=== PATIENT | male | born 1940 | race Caucasian/White ===

== ENCOUNTER 2017-03-14 16:39 | Observation (INO) | payer MEDICARE ==
[~2017-03-14] VITALS: Ht 185.4 cm; Wt 160.0 kg
[~2017-03-14 16:39] MED LIST: ALFUZOSIN HCL E10 MG PO; AUGMENTIN875 MG PO; B-12500 MC1 PO; COUMADIN5 MG PO; COUMADIN7.5 MG PO; CYMBALTA30 MG PO; CYMBALTA60 MG PO; DITROPAN-DPS5 MG PO; DUONEB DPS3 ML IH; GLUCOPHAGE DPS850 MG PO; GLUCOTROL DPS10 MG PO; GLUTOSE 1537.5 GM PO; HYDRODIURIL-DPS25 MG PO; LASIX DPS40 MG PO; LEXAPRO DPS10 MG PO; LEXAPRO5 MG PO; LIORESAL DPS10 MG PO; LIORESAL DPS20 MG PO; LOPRESSOR DPS50 MG PO; LOPRESSOR50 MG PO; MEVACOR20 MG PO; MEVACOR40 MG PO; MILK OF MAGNESI10 ML PO; MIRALAX DPS17 GM PO; MIRALAX PACKET17 GM PO; MUCINEX600 MG PO; NEURONTIN DPS300 MG PO; NEURONTIN DPS600 MG PO; NORCO 5-325 TA1 EACH PO; NORCO 7.5-3251 EACH PO; NOVOLOG100 UNIT/2 SQ; OMEGA-3 DPS1000 MG PO; OSTEO BI-FLEX1 EAC1 PO; SENOKOT S1 TAB PO; THERA-M1 EACH PO; TRIXAICIN60 GM TP; TRUSOPT 2% DPS10 ML OU; TYLENOL DPS325 MG PO; UROXATRAL10 MG PO; VASOTEC DPS20 MG PO; VITAMIN D1000 UNIT PO; VITAMIN D31000 UNIT PO; XALATAN2.5 ML OU; ZOSTRIX TP
--- NOTE | 2017-03-17 10:57 | HP ---
ADMIT: 03/14/2017 RM/LOC: 520 [facility] MR#: [id number] 2620 [facility] [address] [place] [id number] GATUAM DAVE [address] [place] [id number] History and Physical SEX: M AGE: 77 : 1940 DATE OF SERVICE: CHIEF COMPLAINT: Weakness, fatigue, left shoulder pain, recent falls. HISTORY OF PRESENT ILLNESS: The patient states he fell 2-3 days ago, fell backwards out of the bed trying to brace himself with his left arm. Ever since then, he has been having left shoulder pain. He also just feels that he has not been feeling well lately, cannot really tell me specifics, just does not feel himself, and then with his injury, he has been able to hardly get up. The patient's family is very concerned about his weakness and lethargy. They state he often gets UTIs and he often starts having these symptoms. The patient denies any upper respiratory symptoms like runny nose, sinus congestion. He denies any cough and wheezing. He does not have any chest pain or palpitations. He does have some shortness of breath with exertion, but says that this is normal for him. He states this is due to his excessive weight. Again, he states he had no recent illnesses. No nausea, vomiting, diarrhea, constipation. He denies any increased urinary frequency or pain but does have chronic urinary incontinence and states he has had a history of UTIs. Denies any rashes, skin breakdown, cuts or ulcers. The patient just states his main concern is his shoulder pain, his chronic low back pain, and then just his overall fatigue. PAST MEDICAL HISTORY: Significant for atrial fibrillation, hypertension, diabetes, hyperlipidemia, chronic back pain. PAST SURGICAL HISTORY: Surgeries include surgery on his back. ALLERGIES: HIGH-DOSE STATINS. FAMILY HISTORY: Noncontributory. MEDICATIONS: See list. REVIEW OF SYSTEMS: CONSTITUTIONAL: Generalized weakness, fatigue. No headaches. HEENT: No rhinorrhea or congestion or sinus pain or sore throat. HEART: No chest pain. No palpitations. LUNGS: Some shortness of breath with exertion. No cough. No wheezing. ABDOMEN: No nausea, vomiting, diarrhea, or constipation. GENITOURINARY: He is positive for urinary incontinence but no odor or hematuria or dysuria. EXTREMITIES: Mild edema in his lower ankles, left shoulder pain. NEURO: No stroke or seizure-like activity. PHYSICAL EXAMINATION: VITAL SIGNS: Most recent vital signs show a heart rate of 85, respirations 19, blood pressure is 147/71. He has a 15 [place] Coma Scale. He is saturating 98% SpO2 on 3 L nasal cannula. He did have a temperature of 100.5 when he came into the ER. Otherwise, vital signs have been fairly stable. ADMIT: 03/14/2017 RM/LOC: 520 [facility] MR#: [id number] [address] [place] [id number] GAUTAM DAVE [address] [place] [address] History and Physical SEX: M AGE: 77 : 1940 GENERAL: Mild increase in respiratory rate. No acute distress. Alert and oriented x3. He is pleasant. HEENT: Normocephalic and atraumatic. Extraocular muscles are intact. Pupils equal, round, and reactive. No nasal congestion. NECK: Supple. HEART: Regular rate but irregularly irregular rhythm. There is a 2/6 systolic murmur. ABDOMEN: Obese, soft. Positive bowel sounds. LUNGS: Clear to auscultation bilaterally. No wheezing. No congestion. No consolidations. EXTREMITIES: 1+ edema in his ankles bilaterally. NEURO: Cranial nerves II through XII are grossly intact. LABORATORY AND X-RAY DATA: Workup in the ER was fairly non-significant. Chest x-ray was normal, showed some stable cardiomegaly without pulmonary edema. UA was normal. Shoulder and clavicle x-rays were normal. They did not show any signs of fractures. Procalcitonin was less than 0.05. Lactic acid was normal at 1.3. INR was 2.37. He is on anticoagulation. White blood cell count was 10, hemoglobin slightly low at 13, platelets are 179. Electrolytes; sodium 136, potassium 4.1, chloride of 98, CO2 of 32, BUN of 14, creatinine of 0.9, and his glucose is 191. He also had a low magnesium of 1.7. Cardiac enzymes are all normal. EKG showed sinus rhythm at this time. No signs of acute MT. ASSESSMENT AND PLAN: 1. Weakness and fatigue. 2. Increased shortness of breath. 3. Hypertension. 4. Diabetes. 5. Hyperlipidemia. 6. Chronic pain. At this time, due to patient's increased shortness of breath as well as his fatigue, we will go ahead and start the patient on IV Levaquin both for possible coverage of a UTI due to patient's extensive history of UTIs but also for possible URI due to his increased respiratory rate. We will check cardiac enzymes and we will trend labs as well, check a thyroid. We will replace his magnesium. Otherwise, we will continue his home medications. Phyllis Steward MD Resident / Adelaida Lopez MD / pedro JOB #: [id number] CC: Adelaida Lopez MD, Attending Physician [facility] Physician, Family Physician
--- NOTE | 2017-03-19 10:38 | ER ---
ADMIT: 03/14/2017 RM/LOC: 520 [facility] MR#: [id number] [address] [facility] [address] [place], [place] [phone] JODIEELOISE GAUTAM Ureña [address] [place] [address] Emergency Room Report SEX: M AGE: 77 : 1940 DATE: 03/14/2017 ADDENDUM: CHIEF COMPLAINT: Fall, left shoulder pain. Please see my T-sheet for complete review of systems, past medical history, and physical exam. HISTORY OF PRESENT ILLNESS: This is a 77-year-old, white male, who comes from home. Family reports that he has been increasingly confused and depressed over the recent of his brother last week. Reports he has had increased lethargy and concerns for UTI as he has had these in the past with similar symptoms. Family tells me that they have increasing care needs at home and they feel that they are unable to give him proper care. At this point, the complains of left shoulder pain after the fall. He states he has a loss of feeling in power and the affected arm pain with movement and has some chronic back pain. PAST MEDICAL HISTORY: Atrial fibrillation, type 2 diabetes, hypertension, hyperlipidemia. He is on Coumadin for his atrial fibrillation. COURSE IN THE EMERGENCY ROOM: The patient was seen and examined. Did get views of his shoulder as well as collarbone. It is negative for any fracture. Reassessment in the ER did reveal he had a fever. Sepsis labs were drawn. Procalcitonin less than 0.015. Urine; no signs of any infection. PT 25.3, INR 2.37, lactic acid 1.3. White count 10, hemoglobin 13.0, hematocrit 39.1, platelets 179. Sodium 136, potassium 4.1, CO2 of 32, glucose 191, creatinine 0.9. Cardiac enzymes were negative. The patient was given Zofran and morphine, and while in the department tonight, I did discuss this patient with Dr. Lopez, who thought him suitable for admission for placement possibly tomorrow. ADMIT: 03/14/2017 RM/LOC: 520 [facility] MR#: [id number] [address] [phone] GAUTAM DAVE Adelita [address] [place] [address] Emergency Room Report SEX: M AGE: 77 : 1940 IMPRESSION: 1. Left shoulder pain. 2. Increased weakness. 3. Increased falls. DISPOSITION: The patient will be admitted to the care of Dr. Lopez, [place]. Family felt uncomfortable taking this patient home tonight. We will admit him for further evaluation and management for possible placement tomorrow. Questions sought and answered to the best of my ability and to the patient's and family's satisfaction. Discharged to the floor in stable condition. SALOMÓN Hobson / Lewis Stanley MD / pedro JOB #: [id number] CC: Adelaida Lopez MD, Attending Physician [facility] Physician, Family Physician
--- NOTE | 2017-04-30 07:27 | DS ---
ADMIT: 03/14/2017 RM/LOC: 520 [facility] MR#: [id number] 2620 [facility] [address] [place] [phone] GAUTAM DAVE Adelita [place], [place] [address] General Discharge Summary SEX: M AGE: 77 : 1940 ADMISSION DATE: 03/14/2017 DISCHARGE DATE: 03/17/2017 FINAL DIAGNOSES: 1. Contusion to the left shoulder. 2. Cervical degenerative disk disease. 3. Weakness. 4. Type 2 diabetes, without complications. 5. Hypertensive heart disease with heart failure. 6. Chronic congestive heart failure. 7. Hyperlipidemia. 8. Atrial fibrillation. 9. Low back pain. 10.Chronic pain. 11.Fall. REASON FOR ADMISSION: The patient is a 77-year-old, who fell 2-3 days prior to admission backwards out of bed and ended up hurting his left arm. He had been having ongoing left shoulder pain and really pretty unsteady on his feet and family was concerned about high risk of repeat falls. He has also been more lethargic. Has had a lot of UTIs and they thought maybe he was developing an infection. No other acute changes. HOSPITAL COURSE: Workup in the emergency room really was fairly nonsignificant. His INR there was therapeutic. He had no signs of sepsis on labs. White blood cell count was 10 and hemoglobin was slightly low at 13. He was started on IV Levaquin with his history of possible UTI until cultures were available and then PT and OT were ordered. Cardiac enzymes were trended and remained normal. He was kept on sliding scale insulin. Social Work was consulted to look at placement options. Did receive some IV Lasix as he had some fluid overload during his stay. Did not develop any other issues during his stay and so was transferred to [facility] for ongoing [facility] care on 03/17/2017. DISCHARGE INSTRUCTIONS: MEDICATIONS: Include: 1. Coumadin 7.5 mg daily. 2. Cymbalta 120 mg daily. 3. Ditropan 5 mg t.i.d. 4. Glucophage 850 mg t.i.d. with meals. 5. Glucotrol 10 mg b.i.d. 6. Hydrochlorothiazide 25 mg daily. 7. Lasix 20 mg daily. 8. Levaquin 500 mg daily for 7 more days. 9. Lexapro 10 mg daily. 10.Lioresal 20 mg t.i.d. 11.Lopressor 75 mg b.i.d. 12.Mevacor 20 mg at bedtime. ADMIT: 03/14/2017 RM/LOC: 520 [facility] MR#: [id number] [facility] [address] [phone] [place] [address] General Discharge Summary SEX: M AGE: 77 : 1940 13.MiraLax 17 g daily. 14.Neurontin 1200 mg t.i.d. 15.[place]-3 fish oil 2000 mg daily. 16.Senokot-S 2 tabs t.i.d. 17.Therapeutic multivitamin 1 tab daily. 18.Uroxatral 10 mg daily. 19.Vasotec 20 mg b.i.d. 20.Vitamin B12 of 1000 mcg daily. 21.Vitamin D 1000 units daily. 22.Trusopt 1 drop t.i.d. 23.Xalatan 1 drop at bedtime. 24.NovoLog sliding scale. 25.Colace 100 mg b.i.d. p.r.n. 26.Hydrocodone with acetaminophen 7.5/325 mg 1 every 6 hours as needed. We will follow with Dr. Cordero at [facility] and he will be seen in clinic in 1-2 weeks after discharge. We will continue with CPAP at night as well. Adelaida Lopez MD/ pedro JOB #: [id number] CC: Adelaida Lopez MD, Attending Physician [facility] Physician, Family Physician
== END 2017-03-17 10:30 ==
LOC: ER 16:39 → 5MS 20:00
PROVIDERS: ADMIT Family Medicine
DX: S40.012A Contusion of left shoulder, initial encounter (principal); M50.323 Other cervical disc degeneration at C6-C7 level; R53.1 Weakness; E11.9 Type 2 diabetes mellitus without complications; I11.0 Hypertensive heart disease with heart failure; I50.9 Heart failure, unspecified; E78.5 Hyperlipidemia, unspecified; I48.91 Unspecified atrial fibrillation; M54.9 Dorsalgia, unspecified; G89.29 Other chronic pain; Z88.8 Allergy status to other drugs, medicaments and biological substances; Z98.890 Other specified postprocedural states; W06.XXXA Fall from bed, initial encounter